=== PATIENT | female | born 1950 | race Caucasian/White ===

== ENCOUNTER 2020-05-27 14:02 | Outpatient (RCR) | payer MEDICARE, SELFPAY ==
--- NOTE | 2020-05-27 15:07 | PTOPEVAL ---
Thank you for referring Kika Law to [facility].? The patient is scheduled to be seen for therapy? ____x/week for ___ weeks. Please review, sign, date and return this plan of care MARY. I agree with and certify that the following plan of care is medically necessary. Referring Physician Date Admitting Provider: Attending Provider: PHYSICIAN NOT ON STAFF Referring Provider: *PT Outpatient Evaluation Start: 05/27/20 14:08 Freq: Status: Active Protocol: Document 05/27/20 14:13 ALMA (Rec: 05/27/20 14:54 ALMA [id number]) Therapy Assessment Status Assessment Status Assessment Status Evaluation Evaluation Information Problem Diagnosis chronic periscapular pain, left shoulder Onset 05/13/20 Subjective Information Pt. reports that she woke with Query Text:As Reported By Patient/ pain in her shoulder blade Family about 2 weeks ago. She states that it has improved, but is still painful. She reports needles and burning in the area of the left shoulder blade. Pt. reports that she has difficulty with picking up heavy objects with the left arm. She reports no difficulty with sleep. She reports pain can occur without any particular movements on occassion. She reports that her goal is to decrease the pain in the left shoulder blade. Diagnostic Tests X-Rays For This Problem Yes Prior Level of Function Activity Level (Last 3 Months) Occupation retired Hand Dominance Right Activity of Daily Living Ability Independent Indoor/Home Mobility Independent Community Mobility Independent Stairs Ability Independent Functional Cognition (Planning, Shopping Independent , Taking Medications) Cooking Yes Cleaning Yes Laundry Yes Shopping Yes Driving Yes Pain Assessment Pain Scale Pain Scale Used Numeric (1 - 10) Self Report Pain Assessment Left Scapula Reported Pain Level 2 Pain Description Soreness Pain Score Pain Score 2: Self Report Cervical and Lumbar ROM Cervical ROM Cervical Flexion (0-60) 65 Query Text:Active in De
== END 2020-08-25 23:59 | disposition home or self-care (01) ==
LOC: CHSPT 14:02
DX: M25.512 Pain in left shoulder (principal); G89.29 Other chronic pain
CPT/HCPCS: 97014; 97110; 97161; G0283

== ENCOUNTER 2021-07-17 17:23 | Emergency (ER) | payer OTHER, SELFPAY ==
--- NOTE | ~2021-07-17 | XR_ITS ---
XR lumbar spine 2-3V, XR thoracic spine 3V 07/17/2021 18:32 Indication: Status post fall. Back pain. Procedure: 3 views lumbar spine and 3 views thoracic spine Comparison: No prior studies for comparison. Findings: There is no loss of disc height at all lumbar levels. There is mild superior endplate compr ession deformity of T11 and T12, likely chronic. There is moderate multilevel facet hypertrophy. Ther e are cholecystectomy clips. Sacral foramen are symmetric. There is moderate thoracic spondylosis wit h accentuated kyphosis. No paraspinal soft tissue abnormality. There are cholecystectomy clips. Impression: 1: Mild superior endplate compression deformities of T11 and T12, likely chronic. 2: Moderate thoracic and lumbar spondylosis. Reviewed, dictated and finalized at location A. Impression: 1: Mild superior endplate compression deformities of T11 and T12, likely chroni c. 2: Moderate thoracic and lumbar spondylosis. Impression: 1: Mild superior endplate compression deformities of T11 and T12, likely chroni c. 2: Moderate thoracic and lumbar spondylosis.
[2021-07-17 17:38] VITALS: BP 177/94; PULSE 74; RESP 16; TEMP 36.3; O2SAT 98
--- NOTE | 2021-07-17 17:40 | ED.BACK ---
HPI - Back Pain/Injury General Chief Complaint: Back Pain/Injury Stated Complaint: back injury Time Seen by Provider: 07/17/21 17:43 Source: patient Mode of arrival: ambulatory Limitations: no limitations History of Present Illness HPI Narrative: 71-year-old woman with a history of osteoporosis comes in today complaining low back pain that radiates to her right hip that started 5 days ago after she fell. Patient states that she was at work lifting something over her head when she slipped and fell backwards onto her buttocks/tailbone. She denies any bowel or bladder incontinence, numbness, tingling, leg weakness and has no history of back surgery. She denies dysuria, hematuria, but has had frequent urination lately. MD elicited complaint: back pain and back injury Pertinent past history: prior back pain Onset (ago): day(s) (5) Timing: constant Severity: moderate Similar Symptoms Previously: Yes Quality: sharp and aching Location: lumbar spine and thoracic spine Radiation: buttocks (right) Exacerbating factors: other ( Position.) Relieving factors: movement Context: while lifting and fall Associated symptoms: increased urinary frequency Treatments prior to arrival: prescription analgesics Related Data Home Medications Medication Instructions Recorded Confirmed atorvastatin 20 mg PO DAILY 07/17/21 07/17/21 hydrocodone-acetaminophen 1 tablet PO PRN 07/17/21 07/17/21 losartan 100 mg PO DAILY 07/17/21 07/17/21 metoprolol tartrate 25 mg PO BID 07/17/21 07/17/21 montelukast 10 mg PO DAILY 07/17/21 07/17/21 nitroglycerin 0.4 mg SUBLINGUAL PRN 07/17/21 07/17/21 pantoprazole 40 mg PO DAILY 07/17/21 07/17/21 pramipexole 0.25 mg PO DAILY 07/17/21 07/17/21 Allergies Allergy/AdvReac Type Severity Reaction Status Date / Time Penicillins Allergy Rash Verified 07/17/21 17:46 Review of Systems Review of Systems: All systems reviewed & are unremarkable except as noted in HPI and below Constitutional: Constitutional: Denies chills and Denies fever(s) ENT: Denies nasal congestion and Denies sore throat Cardiovascular: Cardiovascular: Denies chest pain and Denies radiating jaw, neck or arm pain Respiratory: Respiratory: Denies cough, Denies dyspnea and Denies wheezing Gastrointestinal: Gastrointestinal: Denies abdominal pain, Denies nausea and Denies vomiting Genitourinary: Genitourinary: Denies hematuria, Reports nocturia and Denies dysuria Musculoskeletal: Musculoskeletal: Denies back pain, Denies arthralgias and Denies joint swelling Integumentary/Breasts: Skin/Breast: Denies pruritus, Denies erythema and Denies rash Neurologic: Denies vertigo, Denies dizziness, Denies syncope, Denies focal weakness and Denies numbness Endocrine: Endocrine: Denies fatigue, Denies polydipsia and Denies polyuria Hematologic/Lymphatic: Hematologic/Lymphatic: Denies easy bleeding and Denies easy bruising Allergic/Immunologic: Allergic/Immunologic: Denies lip swelling, Denies throat swelling and Denies tongue swelling [facility] Past Medical History Medical History Coronary artery disease Dyslipidemia GERD (gastroesophageal reflux disease) Hypertension Surgical History Surgical History H/O knee surgery H/O wrist surgery History of Social History Social History (Updated 07/17/21 @ 18:12 by Sage Cummins MD) Smoking status: Current every day smoker Alcohol intake: never Substance use: never Living arrangements: with family Exam Const: General: healthy appearing and alert Orientation/consciousness: patient oriented x3 Limitations: no limitations Other: mild acute distress. HENMT: Head: normal to inspection Ears: external ears normal, TM's normal bilaterally and EAC's normal General nose exam: Normal nares present Face and sinus: normal facial exam Mouth: Yes moist mucous membranes Throat: po
[2021-07-17 18:43] LABS: Add Urine Microscopic? NO; Appearance Urine Clear (Clear); Bilirubin Urine Negative (Negative); Blood Urine Negative (Negative); Color Urine Light Yellow (Yellow); Glucose Urine UA Negative (Negative); Ketones Urine Negative (Negative); Leukocyte Esterase Ur Negative (Negative); Nitrate Urine Negative (Negative); Protein Urine Negative (Negative); Specific Grav Ur <= 1.005 (1.010-1.020); Urobilinogen Urine 0.2 mg/dL (0.2-1.0)
[2021-07-17 19:40] VITALS: BP 179/101; PULSE 65; RESP 18; O2SAT 96
== END 2021-07-17 19:41 | disposition home or self-care (01) ==
PROVIDERS: Emergency Provider Emergency Medicine
DX: S39.012A Strain of muscle, fascia and tendon of lower back, initial encounter (principal); W19.XXXA Unspecified fall, initial encounter; I25.10 Atherosclerotic heart disease of native coronary artery without angina pectoris; E78.5 Hyperlipidemia, unspecified; K21.9 Gastro-esophageal reflux disease without esophagitis; I10 Essential (primary) hypertension; F17.200 Nicotine dependence, unspecified, uncomplicated
CPT/HCPCS: 72072; 72100; 81003; 99282; 99283

== ENCOUNTER 2021-09-14 16:37 | Emergency (ER) | payer MEDICARE, SELFPAY ==
[2021-09-14 16:48] VITALS: BP 176/81; PULSE 80; RESP 18; TEMP 36.3; O2SAT 97
[2021-09-14] MEDS: AZITHROMYCIN 250 MG TABLET 500 MG PO (17:11)
--- NOTE | 2021-09-14 17:11 | ED.GENADULT ---
HPI - General Adult General Chief complaint: Upper Respiratory Infection Stated complaint: congestion,cough Source: patient Mode of arrival: ambulatory History of Present Illness HPI narrative: Kika is a 71F with a PMH of CAD, HLD, GERD, HTN as well as recurrent bacterial sinusitis that comes in with a few days of sinus pain/pressure, rhinorrhea, congestion, and cough. She denies CP, SOB, N/V, fevers and chills. She has had her covid vaccine and booster. Related Data Home Medications Medication Instructions Recorded Confirmed atorvastatin 20 mg PO DAILY 07/17/21 07/17/21 hydrocodone-acetaminophen 1 tablet PO PRN 07/17/21 07/17/21 losartan 100 mg PO DAILY 07/17/21 07/17/21 metoprolol tartrate 25 mg PO BID 07/17/21 07/17/21 montelukast 10 mg PO DAILY 07/17/21 07/17/21 nitroglycerin 0.4 mg SUBLINGUAL PRN 07/17/21 07/17/21 pantoprazole 40 mg PO DAILY 07/17/21 07/17/21 pramipexole 0.25 mg PO DAILY 07/17/21 07/17/21 Allergies Allergy/AdvReac Type Severity Reaction Status Date / Time Penicillins Allergy Rash Verified 07/17/21 17:46 Review of Systems Constitutional: Constitutional: Reports no additional constitutional complaints Eyes: Eyes: Reports no additional eye complaints ENT: Reports as per HPI Cardiovascular: Cardiovascular: Reports no additional cardiovascular complaints Respiratory: Respiratory: Reports no additional respiratory complaints Gastrointestinal: Gastrointestinal: Reports no additional gastrointestinal complaints Genitourinary: Genitourinary: Reports no additional female genitourinary complaints Musculoskeletal: Musculoskeletal: Reports no additional musculoskeletal complaints Integumentary/Breasts: Skin/Breast: Reports system reviewed and no additional complaints, except as docu Neurologic: Reports system reviewed and no additional complaints, except as documented Psychiatric: Psychiatric: Reports no additional psychiatric complaints Endocrine: Endocrine: Reports no additional endocrine complaints Hematologic/Lymphatic: Hematologic/Lymphatic: Reports no additional hematologic/lymphatic complaints Allergic/Immunologic: Allergic/Immunologic: Reports no additional allergic/immunologic complaints [facility] Past Medical History Medical History Coronary artery disease Dyslipidemia GERD (gastroesophageal reflux disease) Hypertension Surgical History Surgical History H/O knee surgery H/O wrist surgery History of Social History Social History Smoking status: Current every day smoker Alcohol intake: never Substance use: never Exam Const: General: no acute distress Orientation/consciousness: patient oriented x3 HENMT: Head: normal to inspection Other: TTP in the maxiallary sinuses Eyes: Conjunctivae: conjunctivae normal Pupils: Equal, round and reactive pupils present Neck: Neck: normal visual inspection Chest: Chest palpation & inspection: normal inspection of the chest Resp: Effort & Inspection: normal respiratory effort Auscultation: clear to auscultation bilaterally Cardio: Rate: regular rate Rhythm: regular rhythm GI: Inspection: distended GI Palp: Yes Soft to palpation, No Tenderness to palpation present (GI) and No Guarding due to palpation present (GI) : General: Yes no CVA tenderness Skin: General skin exam: normal color Rashes: no rashes Neuro: General: patient oriented x3 and moves all extremities Extrem: General: normal to inspection Psych: Appearance: grossly normal Mental Status: mental status grossly normal Course Course Emergency Course: Allergic to cephalosporins and penicillins so she was given azithromycin as well as covid swab. Vital Signs Vital signs: Vital Signs Temperature 97.3 F L 09/14/21 16:48 Pulse Rate 80 09/14/21 16:48 Respiratory Ra
[2021-09-14 17:42] LABS: SARS-CoV-2 Ag Negative (Negative)
== END 2021-09-14 18:12 | disposition home or self-care (01) ==
PROVIDERS: Emergency Provider Family Medicine
DX: J01.90 Acute sinusitis, unspecified (principal); Z20.822 Contact with and (suspected) exposure to COVID-19; F17.200 Nicotine dependence, unspecified, uncomplicated; I25.10 Atherosclerotic heart disease of native coronary artery without angina pectoris; E78.5 Hyperlipidemia, unspecified; K21.9 Gastro-esophageal reflux disease without esophagitis; I10 Essential (primary) hypertension
CPT/HCPCS: 87426; 99283; A9270; C9803

== ENCOUNTER 2022-08-18 08:13 | Emergency (ER) | payer MEDICARE, SELFPAY ==
--- NOTE | ~2022-08-18 | XR_ITS ---
XR chest 1V portable DATE: 08/18/2022 09:07 INDICATION: Congestion. History of COPD. TECHNIQUE: Portable AP chest on 08/18/2022 at 0915 hours COMPARISON: None FINDINGS: This is a limited portable single view examination. There is mild elevation left leaf of the diaphragm. There is suggestion of a large hiatal hernia. Heart size is not optimally evaluated because of the elevated left diaphragm and magnification associ ated with AP projection. Aortic calcification is noted. Mild infiltrate or atelectasis is suggested at the left lung base. The lungs otherwise appear essenti ally clear. No pleural effusion or pulmonary vascular congestion or pneumothorax is noted. Osteopenia. Surgical clips, right upper quadrant of the abdomen. IMPRESSION: Mild elevation left diaphragm Mild atelectasis is suggested at the left lung base Large hiatal hernia is suggested Aortic calcification Reviewed, dictated and finalized at location A. TY SURVEYOR
[2022-08-18 08:32] VITALS: BP 103/68; PULSE 72; RESP 18; TEMP 37.2; O2SAT 99
[2022-08-18 09:09] LABS: Basophils Absolute Auto 0.07 K/mm3 (0.00-0.10); Basophils Percent Auto 0.6 % (0.0-1.0); Eosinophils Absolute Auto 0.12 K/mm3 (0.02-0.50); Hematocrit 37.4 % (35.0-42.0); Immature Granulocyte Absolute 0.05 K/mm3 (0.00-0.00); Immature Granulocyte Percent A 0.4 % (0.0-0.0); Lymphocytes Absolute Auto 1.55 K/mm3 (1.10-4.50); Lymphocytes Percent Auto 12.6 % (18.0-42.0); Mean Corpuscular HGB Conc 32.1 g/dL (32.0-36.0); Mean Corpuscular Hemoglobin 29.2 pg (27.0-31.0); Mean Platelet Volume 11.5 fl (9.2-11.8); Monocytes Absolute Auto 0.69 K/mm3 (0.10-0.90); Monocytes Percent Auto 5.6 % (2.0-11.0); Neutrophils Absolute Auto 9.9 K/mm3 (1.7-7.2); Neutrophils Percent Auto 79.8 % (50.0-70.0); Platelet Count Result 198 K/mm3 (150-420); Red Blood Count 4.11 M/mm3 (4.20-5.40); Red Cell Distribution Width 12.9 % (11.6-14.4); White Blood Count 12.3 K/mm3 (4.8-10.8)
[2022-08-18] MEDS: guaiFENesin 12 HR 600 MG TABCR PO (09:11)
[2022-08-18] MEDS: SODIUM CHLORIDE 0.9% IV 500 ML 999 ML IV CONT (09:12)
[2022-08-18] MEDS: methylPREDNISolone SOD SUCC 125 MG VIAL IV PUSH (09:14)
[2022-08-18] MEDS: IPRATROPIUM 0.5 MG/ALBUTEROL SULFATE 2.5 MG AMPUL.NEB 3 ML INHALATION (09:17)
[2022-08-18 09:27] LABS: Alanine Aminotransferase 15 U/L (14-59); Albumin Level 3.6 g/dL (3.4-5.0); Alkaline Phosphatase 66 U/L (46-116); Anion Gap 7 mmol/L (8-16); Aspartate Amino Transferase 15 U/L (15-37); Bilirubin,Total 0.2 mg/dL (0.00-1.00); Blood Urea Nitrogen 11 mg/dL (7-18); Calcium 8.6 mg/dL (8.5-10.1); Carbon Dioxide 27 mmol/L (21-32); Chloride 104 mmol/L (98-108); Estimated Glomerular Filt Rate 59; Glucose 88 mg/dL (70-99); Magnesium 1.9 mg/dL (1.8-2.4); Osmolality Calculated 284 mOsm/kg (285-295); Potassium 4.6 mmol/L (3.5-5.1); Sodium 138 mmol/L (136-145); Total Protein 7.4 g/dL (6.4-8.2)
[2022-08-18 09:38] LABS: Strep Group A RT-PCR Negative (Negative)
[2022-08-18 09:46] LABS: Influenza A QL RT-PCR Negative (Negative); Influenza B QL RT-PCR Negative (Negative); SARS-CoV-2 RNA PCR Negative (Negative)
--- NOTE | 2022-08-18 10:13 | ED.URI ---
HPI - URI/Sore Throat General Chief Complaint: Upper Respiratory Infection Stated Complaint: cold / sinus infection/ head & chest hurts Time Seen by Provider: 08/18/22 08:14 Source: patient and RN notes reviewed Mode of arrival: ambulatory Limitations: no limitations History of Present Illness MD elicited complaint: cough, nasal congestion and sinus pain Onset (ago): day(s) (2) Consistency: progressively worsening Severity: mild Pain scale (0-10): 4 Able to tolerate fluids by mouth: Yes Exacerbating factors: nothing Relieving factors: NSAID Associated symptoms: nasal congestion, sore throat, cough and shortness of breath Related Data Home Medications Medication Instructions Recorded Confirmed atorvastatin 20 mg tablet 20 mg PO DAILY 07/17/21 08/18/22 hydrocodone 5 mg-acetaminophen 325 1 tablet PO PRN 07/17/21 08/18/22 mg tablet losartan 100 mg tablet 100 mg PO DAILY 07/17/21 08/18/22 metoprolol tartrate 25 mg tablet 25 mg PO BID 07/17/21 08/18/22 montelukast 10 mg tablet 10 mg PO DAILY 07/17/21 08/18/22 nitroglycerin 0.4 mg sublingual 0.4 mg sublingual PRN 07/17/21 08/18/22 tablet pantoprazole 40 mg tablet,delayed 40 mg PO DAILY 07/17/21 08/18/22 release pramipexole 0.25 mg tablet 0.25 mg PO DAILY 07/17/21 08/18/22 Allergies Allergy/AdvReac Type Severity Reaction Status Date / Time amoxicillin Allergy Unknown Verified 08/18/22 08:30 Penicillins Allergy Rash Verified 08/18/22 08:30 Review of Systems Review of Systems: All systems reviewed & are unremarkable except as noted in HPI and below Constitutional: Constitutional: Reports no additional constitutional complaints Eyes: Eyes: Reports no additional eye complaints ENT: Reports nasal congestion and Reports sore throat Cardiovascular: Cardiovascular: Reports no additional cardiovascular complaints Respiratory: Respiratory: Reports dyspnea Gastrointestinal: Gastrointestinal: Reports no additional gastrointestinal complaints Genitourinary: Genitourinary: Reports no additional female genitourinary complaints Musculoskeletal: Musculoskeletal: Reports no additional musculoskeletal complaints Integumentary/Breasts: Skin/Breast: Reports system reviewed and no additional complaints, except as docu Neurologic: Reports system reviewed and no additional complaints, except as documented Psychiatric: Psychiatric: Reports no additional psychiatric complaints Endocrine: Endocrine: Reports no additional endocrine complaints Hematologic/Lymphatic: Hematologic/Lymphatic: Reports no additional hematologic/lymphatic complaints Allergic/Immunologic: Allergic/Immunologic: Reports no additional allergic/immunologic complaints [facility] Past Medical History Medical History (Updated 08/27/22 @ 08:05 by Annette Dixon MD) Bronchitis Coronary artery disease Dyslipidemia GERD (gastroesophageal reflux disease) Hypertension Sinusitis Surgical History Surgical History H/O knee surgery H/O wrist surgery History of Social History Social History Smoking status: Current every day smoker Alcohol intake: never Substance use: never Exam Const: General: no acute distress and well nourished Nutritional Appearance: well nourished Orientation/consciousness: patient oriented x3 Limitations: no limitations HENMT: Head: normal to inspection Ears: external ears normal, TM's normal bilaterally and EAC's normal Face/Nose/Sinus: Normal external nose present, Normal nares present, normal facial exam and sinuses nontender Face and sinus: normal facial exam and sinuses nontender Mouth: Yes Normal oral and palatal mucosa present and Yes moist mucous membranes Teeth and gingiva: dentition normal Other: mild pharyngeal redness, minimal facial tenderness Eyes: Conjunctivae: conjunctivae normal Pupils: Equal, round and reactive pupils present
[2022-08-18 10:29] VITALS: BP 129/65; PULSE 70; RESP 18; O2SAT 92
== END 2022-08-18 10:31 | disposition home or self-care (01) ==
PROVIDERS: Emergency Provider Emergency Medicine
DX: J32.9 Chronic sinusitis, unspecified (principal); J40 Bronchitis, not specified as acute or chronic; Z20.822 Contact with and (suspected) exposure to COVID-19; I25.10 Atherosclerotic heart disease of native coronary artery without angina pectoris; E78.5 Hyperlipidemia, unspecified; K21.9 Gastro-esophageal reflux disease without esophagitis; I10 Essential (primary) hypertension; F17.200 Nicotine dependence, unspecified, uncomplicated
CPT/HCPCS: 36415; 71045; 80053; 83735; 85025; 87502; 87651; 96361; 96374; 99284; A9270; J2930; J7040; U0003; U0005

== ENCOUNTER 2024-03-20 21:54 | Emergency (ER) | payer MEDICARE, SELFPAY ==
[2024-03-20 21:55] VITALS: BP 160/99; PULSE 139; RESP 22; TEMP 36.6; O2SAT 93
[2024-03-20 22:01] LABS: Glucose Point of Care 97 mg/dl (65-105)
--- NOTE | 2024-03-20 22:02 | PC.NURSE ---
2158: took pt blood sugar w/ reading of 97 mg/dL
--- NOTE | 2024-03-20 22:23 | ED.GENADULT ---
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 She was worried that her blood sugar was 171 after taking a sugary drink. She is getting confused with low and high blood sugars. She is also getting ready to start prednisone. Patient mostly needs reassurance at this time. Onset (ago): hour(s) (1) Radiation: non-radiation Severity: mild Relieving factors: none Exacerbating factors: none Associated symptoms: denies other symptoms Treatments prior to arrival: none Related Data Home Medications Medication Instructions Recorded Confirmed atorvastatin 20 mg tablet 20 mg PO DAILY 07/17/21 03/20/24 hydrocodone 5 mg-acetaminophen 325 1 tablet PO PRN 07/17/21 03/20/24 mg tablet losartan 100 mg tablet 100 mg PO DAILY 07/17/21 03/20/24 metoprolol tartrate 25 mg tablet 25 mg PO BID 07/17/21 03/20/24 montelukast 10 mg tablet 10 mg PO DAILY 07/17/21 03/20/24 nitroglycerin 0.4 mg sublingual 0.4 mg sublingual PRN 07/17/21 03/20/24 tablet pantoprazole 40 mg tablet,delayed 40 mg PO DAILY 07/17/21 03/20/24 release pramipexole 0.25 mg tablet 0.25 mg PO DAILY 07/17/21 03/20/24 aspirin 81 mg tablet,delayed 81 mg PO DAILY 03/20/24 03/20/24 release bupropion HCl 150 mg 24 hr tablet, 150 mg PO DAILY 03/20/24 03/20/24 extended release cyclobenzaprine 5 mg tablet 5 mg PO BID PRN Spasms 03/20/24 03/20/24 famotidine 20 mg tablet 20 mg PO DAILY 03/20/24 03/20/24 prednisone 5 mg tablet 5 mg PO DAILY 03/20/24 03/20/24 Allergies Allergy/AdvReac Type Severity Reaction Status Date / Time amoxicillin Allergy Unknown Verified 08/18/22 08:30 Penicillins Allergy Rash Verified 08/18/22 08:30 Review of Systems Review of Systems: All systems reviewed & are unremarkable except as noted in HPI and below Constitutional: Constitutional: Reports no additional constitutional complaints Eyes: Eyes: Reports no additional eye complaints ENT: Reports system reviewed and no additional complaints, except as documented Cardiovascular: Cardiovascular: Reports no additional cardiovascular complaints Respiratory: Respiratory: Reports no additional respiratory complaints Gastrointestinal: Gastrointestinal: Reports no additional gastrointestinal complaints Genitourinary: Genitourinary: Reports no additional female genitourinary complaints Musculoskeletal: Musculoskeletal: Reports no additional musculoskeletal complaints Integumentary/Breasts: Skin/Breast: Reports system reviewed and no additional complaints, except as docu Neurologic: Reports system reviewed and no additional complaints, except as documented Psychiatric: Psychiatric: Reports no additional psychiatric complaints Endocrine: Endocrine: Reports no additional endocrine complaints Hematologic/Lymphatic: Hematologic/Lymphatic: Reports no additional hematologic/lymphatic complaints Allergic/Immunologic: Allergic/Immunologic: Reports no additional allergic/immunologic complaints [facility] Past Medical History Medical History Bronchitis Coronary artery disease Dyslipidemia GERD (gastroesophageal reflux disease) Hypertension Sinusitis Surgical History Surgical History H/O knee surgery H/O wrist surgery History of Social History Social History Smoking status: Current every day smoker Alcohol intake: never Substance use: never Living arrangements: with family Exam Const: General: cooperative, healthy appearing and comfortable HENMT: Head: normal to inspection, No palpable skull fracture present and no
--- NOTE | 2024-03-20 22:30 | PC.NURSE ---
ER provider at the bedside
== END 2024-03-20 22:44 | disposition home or self-care (01) ==
LOC: CHSED 22:38
PROVIDERS: Emergency Provider Emergency Medicine; PCP Hospitalist
DX: D3A.098 Benign carcinoid tumors of other sites (principal); I25.10 Atherosclerotic heart disease of native coronary artery without angina pectoris; E78.5 Hyperlipidemia, unspecified; I10 Essential (primary) hypertension; F17.200 Nicotine dependence, unspecified, uncomplicated; Z79.899 Other long term (current) drug therapy; Z79.82 Long term (current) use of aspirin; Z79.891 Long term (current) use of opiate analgesic
CPT/HCPCS: 82948; 99282